=== PATIENT | male | born 2000 | race Two or more races ===

== ENCOUNTER 2020-07-15 17:42 | Emergency (ER) | payer OTHER, SELFPAY ==
[2020-07-15 17:45] VITALS: BP 133/97; PULSE 91; RESP 18; TEMP 36.2; O2SAT 98; BMI 30.6
--- NOTE | 2020-07-15 18:35 | MRI_ITS ---
STUDY: MRI BRAIN WITHOUT CONTRAST REASON FOR EXAM: Male, 19 years old. vision blurring, incontinence, eval for ms TECHNIQUE: Standardized multiplanar fat and water weighted pulse sequences were obtained. COMPARISON: None. FINDINGS: Normal size of the ventricles and extra-axial spaces for the patient''s age. Multiple bilateral periventricular white matter lesions some of which involve the callosal septal interface without mass effect or restricted diffusion which may be consistent with demyelinating disease in patient of this age. Normal bilateral basal ganglia. Normal thalami. There is no extra-axial fluid accumulation. Normal flow voids within the major intracranial circulation suggesting patency by spin echo criteria. Normal sella turcica, pituitary gland, infundibular stalk, optic chiasm and hypothalamus. Normal tectal plate and pineal gland. Normal midbrain, mary kay and medulla. Normal cerebellum. Normal basal cisterns. Normal bilateral temporal bones. Normal bilateral internal auditory canals. No demonstrated orbital abnormality, within the constraints of a routine brain study. Normal visualized paranasal sinuses. Normal calvarium and skull base. Normal visualized soft tissue structures. There appears to be a lesion within the cord posterior to the C2 vertebral body also likely demyelinating plaque. MRI/Brain without Contrast IMPRESSION: Findings which are consistent with multiple sclerosis with possible involvement of the cervical cord at C2.. . Limited repeat study with contrast would be helpful to assess possible active demyelination if clinically indicated Electronically Signed: Tye Fay MD at 20:02 EDT , Service support ,
--- NOTE | 2020-07-15 18:53 | ED.DCSUM_ITS ---
History of Present Illness Chief Complaint: Numb/Ting Informant: Patient Narrative: Patient is a 19-year-old previously healthy male who presents to the emergency department for right leg/arm heaviness, paresthesia/numbness. He states that he is also been having some blurred vision bilaterally. He has had a few episodes of incontinence. All the symptoms have been present over the past 2 weeks. He denies ever having this happen before in the past. Denies any significant headache. No neck stiffness. No fevers or chills. Denies any chest pain, shortness of breath or heart palpitations. No abdominal pain or nausea/vomiting. Denies any dysuria or hematuria. No change in bowel habits. He denies any family history of neurological disorders. He denies smoking, drinking or drug use. Past Medical History - Allergies and Home Meds Allergies/Adverse Reactions: Allergies No Known Allergies Allergy (Verified 07/15/20 17:47) Primary Care Physician: Care Physician,No Primary [Primary Care Provider] - Prior records reviewed: Yes Past Medical History: None Smoking Status: Never smoker Alcohol: None Drugs: None Review of Systems All systems negative except as indicated General: Denies: Chills, Fever, Sweats Eyes: Reports: Blurred Vision - bilaterally ENT: Denies: Rhinorrhea, Sore throat Cardiovascular: Denies: Chest pain, Palpitations Respiratory: Denies: Dyspnea, Cough, Dyspnea on exertion Gastrointestinal: Denies: Abdominal pain, Nausea, Vomiting, Diarrhea Genitourinary: Reports: - - Incontinence. Denies: Dysuria, Hematuria, Frequency Musculoskeletal: Denies: Back pain, Extremity Pain Skin: Denies: Rash, Wounds Neurological: Reports: Parasthesia, Numbness. Denies: Headache, Weakness Physical Exam Vital Signs/Narrative: Vital Signs Temp Pulse Resp BP Pulse Ox 07/15/20 17:45 97.2 F L 91 18 133/97 H 98 Inital Vital Signs reviewed: Yes General: Well nourished, Well developed, No Acute Distress Head: Normocephalic, Atraumatic Eyes: Perrl, EOMI ENT: Moist mucous membranes, No rhinorrhea Neck: Supple, Nontender Cardiovascular: Regular rate, Regular rhythm, No murmurs Respiratory: No distress, CTA bilaterally, Chest nontender Abdomen: Soft, Nontender, Nondistended, Normal bowel sounds Back: Nontender, Normal Inspection Extremities: Nontender, No edema Skin: Normal color, No rash Neurological: Alert, Oriented x3, Cranial nerves II-XII grossly intact, Normal Strength, - - 5 out of 5 muscle strength good coordination. Feels that the sensation is slightly decreased in the right side. Psychological: Normal affect, Normal Mood Diagnostic/Tx/Re-eval - Medical Decision Making Patient presents to the ED for right-sided weakness/paresthesia, vision changes and incontinence. Upon arrival to the emerge department vital signs within normal limits. I do have concern for multiple sclerosis so we will obtain MRI. Basic lab work and urinalysis being obtained. Unfortunately MRI did show lesions concerning for multiple sclerosis. I spoke with on-call neurologist at [facility] and he recommended transfer as we do not have neurology care. He did not recommend any steroid treatment as it is not emergent and they will give this at their facility. Patient otherwise has been stable throughout ED stay. He understands and is agreeable with this plan. Patient signed out due to end of shift. Currently awaiting accepting physician and transfer. Patient signed out due to end of shift. ED Disposition - Plan for ED Patient: Disposition: [facility] Diagnosis: Multiple sclerosis Referrals: Care Physician,No Primary [Primary Care Provider] -
[2020-07-15 18:57] LABS: Absolute Lymphocyte Count 1.95 X10^3/uL (0.83-4.51); Absolute Neutrophil Count 1.9 X10^3/uL (2.0-7.7); Basophil# 0.07 X10^3/uL; Basophil% 1.2 % (0-1); Eosinophil# 0.15 X10^3/uL; Eosinophils% 2.6 % (0-5); Hematocrit 44.9 % (40-54); Hemoglobin 15.3 g/dL (13.0-16.5); Lymphocyte # 1.95 X10^3/ul (4.0); Lymphocyte % 34.2 % (19-41); Mean Corp Hgb Conc 34.1 g/dL (32-36); Mean Corpuscular Hgb 28.8 pg (27.0-32.0); Mean Corpuscular Volume 84.6 fL (80-94); Mean Platelet Vol. 9.7 fl (6.2-12.0); Monocyte# 1.55 X10^3/uL; Monocyte% 27.2 % (0-10); NRBC Flagged by Analyzer 0 % (0-5); Neutrophil # 1.93 X10^3/uL (2.7-7.7); Neutrophil % 33.9 % (47-70); POSITIVE DIFFERENTIAL YES; Platelet Count 337 K/mm3 (150-450); RBC Distribution Width CV 11.8 % (11.6-14.6); RBC Distribution Width SD 35.9 fl (35.1-43.9); Red Blood Count 5.31 M/mm3 (4.6-6.2); White Blood Count 5.7 K/mm3 (4.4-11.0)
[2020-07-15 19:03] LABS: Differential Indicated SCAN CRITERIA MET
[2020-07-15 19:12] LABS: Anion Gap 6 (5-15); BUN 19 mg/dL (7-18); BUN/Creat Ratio 17.6 RATIO (10-20); Calcium,Total 9.5 mg/dL (8.5-10.1); Chloride 108 mmol/L (98-107); Creatinine, Serum 1.08 mg/dL (0.70-1.30); EST Glomerular Filtration Rate 92 mL/min (>60); Est Glom Filt Rate - Afr Amer 111 mL/min (>60); Glucose 86 mg/dL (74-106); Potassium 3.9 mmol/L (3.5-5.1); Sodium Level 142 mmol/L (136-145)
[2020-07-15 20:45] VITALS: BP 140/94; PULSE 87; RESP 16; O2SAT 98
--- NOTE | 2020-07-15 21:00 | CM.ED ---
SOCIAL WORK Informant: Dr. Rice Reason for Consult: Support/Resources Case conference with Dr. Rice. Patient newly diagnosed with MS. Patient from the [facility]. Met with patient in room. Introduced role and reason for referral. Patient states [facility]. Discussed diagnosis. Patient reports will be following up with the [facility]. Emotional support, education and active listening provided. Tracey Marcos, CINDER DUMP CRANE OPERATOR, [id number] ANALYST
--- NOTE | 2020-07-15 22:26 | ED.RN ---
[facility] UPDATED ON PATIENT CONDITION
[2020-07-15 23:48] VITALS: BP 136/79; PULSE 74; RESP 16; TEMP 36.4; O2SAT 96
[2020-07-15 23:57] VITALS: BP 136/79; PULSE 74; RESP 16; TEMP 36.4; O2SAT 96
== END 2020-07-16 00:58 | disposition short-term general hospital (02) ==
PROVIDERS: Emergency Provider Emergency Medicine
DX: G35 Multiple sclerosis (principal)
CPT/HCPCS: 70551; 80048; 85025; 99283

== ENCOUNTER 2020-08-24 14:04 | Outpatient (RCR) | payer SELFPAY | END 2020-09-04 23:59 | LOC: NS 14:04 | PROVIDERS: Visit Provider Family Medicine | DX: Z71.3 Dietary counseling and surveillance (principal); E66.9 Obesity, unspecified | CPT/HCPCS: 97802 ==

== ENCOUNTER 2020-09-07 13:53 | Outpatient (RCR) | payer SELFPAY | END 2020-10-04 23:59 | LOC: NS 13:53 | PROVIDERS: Visit Provider Family Medicine | DX: Z71.3 Dietary counseling and surveillance (principal); E66.9 Obesity, unspecified | CPT/HCPCS: 97803 ==

== ENCOUNTER 2020-12-28 15:30 | Outpatient (RCR) | payer SELFPAY | END 2021-01-02 23:59 | LOC: NS 15:30 | PROVIDERS: Visit Provider Family Medicine | DX: Z71.3 Dietary counseling and surveillance (principal); E66.9 Obesity, unspecified | CPT/HCPCS: 97803 ==

== ENCOUNTER 2021-01-17 14:25 | Outpatient (RCR) | payer SELFPAY | END 2021-02-02 23:59 | LOC: NS 14:25 | PROVIDERS: Visit Provider Family Medicine | DX: Z71.3 Dietary counseling and surveillance (principal); E66.9 Obesity, unspecified | CPT/HCPCS: 97803 ==

== ENCOUNTER 2021-02-08 14:24 | Outpatient (RCR) | payer SELFPAY | END 2021-02-18 23:59 | disposition home or self-care (01) | LOC: NS 14:24 | PROVIDERS: Visit Provider Family Medicine | DX: Z71.3 Dietary counseling and surveillance (principal); E66.9 Obesity, unspecified | CPT/HCPCS: 97803 ==

== ENCOUNTER 2021-02-08 14:58 | Emergency (ER) | payer OTHER, SELFPAY ==
[2021-02-08 14:59] VITALS: BP 131/93; PULSE 68; RESP 14; TEMP 36.7; O2SAT 99; BMI 30.4
--- NOTE | 2021-02-08 15:22 | ED.VIS.GEN ---
History of Present Illness Chief Complaint: Eye Problem Informant: Patient Onset: Month(s) - 3 Narrative: Patient presents for evaluation for a large bump on his left eyelid. He reports he noted symptoms in November where he could not close his eyes. He goes to school here and is from [place]. He states he was on antibiotic topically however symptoms are not improving. He saw his PCP back in [place] and was told to see a physician [place] the [place]. He states he called ophthalmology office around the area stating his appointment is not for 2 weeks. He states over the past 3 weeks it has enlarged and has been draining. Mild blurry vision. He wears glasses. He states due to appointment not for another 2 weeks is concerned therefore came here. States been using warm compresses throughout with no improvement. Ortiz here healthy 20-year-old came in with incised chalazion. Started in November is from [place] goes to school years and is like with the PCP over [place] several see In 30-minute appointment think it with your group decision-making: I doctors appointments now for 2 weeks now since I got bigger in the last 2 to 3 weeks is probably good marble size of this does not keep him from closing his eyes and I see some exudative drainage to actually under his eyelid a little bit there so there is some he says kind of been draining recently but he said well 2 weeks of appointment and I was concerned so he came here. Prior similar symptoms: No Past Medical History - Allergies and Home Meds Allergies/Adverse Reactions: Allergies No Known Allergies Allergy (Verified 07/15/20 17:47) Primary Care Physician: Care Physician,No Primary [NON-STAFF] - Past Medical History: None Smoking Status: Never smoker Review of Systems General: Denies: Chills, Fever, Sweats Eyes: Reports: Blurred vision - left, - - Left eyelid swelling.. Denies: Visual changes - bilaterally, Diplopia ENT: Denies: Rhinorrhea, Sore throat Cardiovascular: Denies: Chest pain, Palpitations Respiratory: Denies: Dyspnea, Cough, Dyspnea on exertion Gastrointestinal: Denies: Abdominal pain, Nausea, Vomiting, Diarrhea, Melena, Hematochezia Genitourinary: Denies: Dysuria, Hematuria, Frequency Musculoskeletal: Denies: Back pain, Extremity Pain Skin: Denies: Rash, Wounds Neurological: Denies: Headache, Weakness, Numbness Physical Exam Vital Signs/Narrative: Vital Signs Temp Pulse Resp BP Pulse Ox 02/08/21 14:59 98.0 F 68 14 131/93 H 99 General: Well nourished, Well developed, No Acute Distress Head: Normocephalic, Atraumatic Eyes: Perrl, EOMI, - - [place] size movable nodule mid upper eyelid, looking under there is pinpoint region where there is exudative drainage. There is mild erythema of the sclera. Visual acuity with glasses 20/40 OD, 20/50 OS, 20/40 OU ENT: Moist mucous membranes, No rhinorrhea Neck: Supple, Nontender Cardiovascular: Regular rate, Regular rhythm, No murmurs Respiratory: No distress, CTA bilaterally, Chest nontender Abdomen: Soft, Nontender, Nondistended, Normal bowel sounds Back: Nontender, Normal Inspection Extremities: Nontender, No edema Skin: Normal color, No rash Neurological: Alert, Oriented x3, Cranial nerves II-XII grossly intact, Normal Strength, Normal Sensation Psychological: Normal affect, Normal Mood Diagnostic/Tx/Re-eval - Medical Decision Making Clinically patient has a chalazion causing him difficulty closing his eyes there is some drainage. Visual acuity was intact with no significant findings. Due to his difficulty getting to an eye doctor for 2 weeks I spoke with on-call supervisor telephone answering service Dr. Villalobos discussed will place him on oral antibiotics of doxycycline twice a day to be seen as an outpatient. ED Disposition - Plan for ED Patient: Disposition: Home or Assisted Living Diagnosis: Chalazion left upper eyelid Instructions: ED Chalazion Prescriptions: Doxycycline 100 mg PO BID #20 capsule Referrals: Care Physician,No Primary [NON-STAFF] - Tye Villalobos MD [STAFF PHYSICIAN] - 1 Day
[2021-02-08] MEDS: Doxycycline 100 MG CAPSULE PO (15:46)
[2021-02-08 16:19] VITALS: RESP 16
== END 2021-02-08 16:20 | disposition home or self-care (01) ==
PROVIDERS: Emergency Provider Emergency Medicine; PCP Pediatrics
DX: H00.14 Chalazion left upper eyelid (principal)
CPT/HCPCS: 99283

== ENCOUNTER 2021-02-17 08:02 | Outpatient (RCR) | payer OTHER, SELFPAY | END 2021-04-12 23:59 | LOC: IMMUN 08:02 | PROVIDERS: PCP Pediatrics; Referring Provider Family Medicine; Visit Provider Family Medicine | DX: Z23 Encounter for immunization (principal) | CPT/HCPCS: 0002A; 91300 ==

== ENCOUNTER 2021-03-12 15:14 | Emergency (ER) | payer OTHER, SELFPAY ==
[2021-03-12 15:16] VITALS: BP 117/52; PULSE 79; RESP 14; TEMP 36.6; O2SAT 99; BMI 31.6
--- NOTE | 2021-03-12 15:31 | EKG12_ITS ---
Test Reason : Blood Pressure : / mmHG Vent. Rate : 081 BPM Atrial Rate : 081 BPM P-R Int : 162 ms QRS Dur : 100 ms QT Int : 340 ms P-R-T Axes : 055 012 050 degrees QTc Int : 394 ms Normal sinus rhythm Normal ECG Confirmed by JANAK LOWE, GLADIS ([id number]), supervising editor news reel FIDEL JIMÉNEZ ([id number]) on 03/14/2021 1:15:53 PM Referred By: JAYLA Confirmed By:GLADIS BRICENO MD
--- NOTE | 2021-03-12 15:32 | EDS_ITS ---
HPI History of Present Illness Chief Complaint: Shortness of Breath Informant: patient Onset/Context/Timing Onset: Days Context: Gradual Onset Current Severity: Moderate Maximum Severity: Moderate Narrative Narrative: Patient presents secondary to shortness of breath and chest pain. Patient got his second dose of Pfizer Covid vaccine on March 10. That evening he developed fevers and body aches. Today he developed shortness of breath that has been worsening throughout the day. He does describe intermittent sharp central chest pain. [facility] Medical History (Updated 03/12/21 @ 18:[address] Christine Brenner MD) Depression Allergy/AdvReac Type Severity Reaction Status Date / Time No Known Allergies Allergy Verified 07/15/20 17:47 Social History Smoking Status: Never smoker ROS ROS ED Constitutional Constitutional ED: Reports fever(s); Denies chills Eyes Eyes: Denies change in vision ENT ENT ED: Denies sore throat Cardiovascular Cardiovascular: Reports chest pain; Denies racing heartbeat Respiratory/Chest Respiratory/Chest: Reports dyspnea; Denies cough Gastrointestinal Gastrointestinal: Denies abdominal pain, diarrhea, nausea or vomiting Genitourinary Genitourinary ED: Denies dysuria Musculoskeletal Musculoskeletal: Reports myalgias; Denies back pain Integumentary Denies rash Neurologic Neurologic: Denies headache(s) or weakness Psychiatric Psychiatric: Denies anxiety or depression Endocrine Endocrinology: Denies polydipsia or polyuria Allergic/Immunologic Allergic/Immunologic ED: Denies urticaria EXAM Physical Exam Const Vital Signs: 03/12/21 15:16 03/12/21 15:44 03/12/21 17:00 Temperature 97.8 F Temperature Source Temporal Pulse Rate 79 86 Respiratory Rate 14 29 H Respiratory Effort Short of Breath Respiratory Depth Shallow Respiratory Pattern Tachypnea Blood Pressure 117/52 L 128/70 H Blood Pressure Mean 73 89 Pulse Ox 99 96 Oxygen Delivery Method Room Air Room Air Positive well nourished and well developed General Appearance ED: well developed HEENT Reports normocephalic and head/scalp atraumatic Eyes PERRL and EOMs intact bilaterally Neck supple Chest Wall inspection of chest normal and palpation of chest normal Resp normal respiratory effort and clear to auscultation bilaterally Cardio regular rate and regular rhythm GI normal to inspection, nondistended, normoactive bowel sounds Palpation: soft Back/Spine no CVA tenderness Extremity normal to inspection Neuro oriented x3 and no sensory deficits noted Sensorium / Orientation: alert Motor Exam: strength 5/5 throughout Psych mental status grossly normal Skin no rashes or lesions noted MDM MDM MDM Narrative Medical decision making narrative: Patient placed on alarm security or surveillance monitor with pulse ox. No significant arrhythmias noted. No episodes of hypoxia. Lab Data Attestation: I reviewed the patient's lab results. Labs: Laboratory Results - last 24 hr 03/12/21 03/12/21 03/12/21 15:40 15:40 15:46 WBC 6.7 RBC 4.95 Hgb 13.9 Hct 42.1 MCV 85.1 MCH 28.1 MCHC 33.0 RDW Std Deviation 37.7 RDW Coeff of Wendy 12.2 Plt Count 225 MPV 9.8 Immature Gran % (Auto) 3.000 H Neut % (Auto) 37.4 L Lymph % (Auto) 13.5 L [place] % (Auto) 43.3 H Eos % (Auto) 1.9 Baso % (Auto) 0.9 Absolute Neuts (auto) 2.5 Absolute Lymphs (auto) 0.91 Nucleated RBC % 0 Differential Comment SCANNED D-Dimer Quant (PE/DVT) 1.01 H* Sodium 136 Potassium 3.8 Chloride 104 Carbon Dioxide 28.0 Anion Gap 4 L BUN 19 H Creatinine 0.83 Estim Creat Clear Calc 140.78 Est GFR (MDRD) Af Amer 151 Est GFR (MDRD) Non-Af 124 BUN/Creatinine Ratio 22.9 H Glucose 138 H Calcium 8.9 Troponin I < 0.015 Radiography Chest X-Ray - ED: 1 View, Read by ED Physician, Normal, Heart, Lungs and Mediastinum Diagnostic Testing: Radiology Impression Chest X-Ray 03/12/21 15:49 IMPRESSION: Slight increase in perihilar interstitial markings may be in part due to low lung volumes, however cannot rule out infection and/or edema. Electronically Signed: Jesús Saucedo MD at 16:23 EDT Tel , Service support , Chest CTA 03/12/21 17:09 IMPRESSION: 1. No pulmonary embolism 2. No acute findings. Electronically Signed: Edilson Aguilar MD at 17:59 EDT Tel , Service support , EKG Initial EKG: Attestation: I personally reviewed and interpreted this EKG as follows: Interpretation: Sinus Rhythm (Sinus 81 with no acute ischemia.) Treatment and Re-Evaluation Comments:: On repeat evaluation patient resting comfortably. Test results reviewed with him. At this time I do not have a definitive cause for his dyspnea, but was able to reassure him that he has no evidence of infiltrate, pneumothorax, blood clot, etc. Patient will continue to monitor his symptoms. I did encourage him to return for worsening symptoms or concerns. Discharge Plan Triage Chief Complaint: Shortness of Breath ED Provider: Christine Brenner Dx/Rx/DC Orders Clinical Impression: Acute dyspnea Instructions: ED Dyspnea Primary Care Provider: Mark Barillas Referrals: Mark Barillas MD [Primary Care Provider] - [facility] [GROUP OF PHYSICIANS] - 3-5 Days if not improving Disposition Disposition: Home, self care
--- NOTE | 2021-03-12 15:46 | NURSING ---
NO OLD EKG
--- NOTE | 2021-03-12 15:49 | RAD_ITS ---
INDICATION: sob EXAMINATION/TECHNIQUE: X-RAY - XR Chest 1 View COMPARISON: None. FINDINGS: Low lung volumes. Slight increase in perihilar interstitial markings. The cardiomediastinal silhouette is unremarkable. No pleural effusion or pneumothorax. No acute osseous abnormalities. RAD/Chest 1 View (Portable) IMPRESSION: Slight increase in perihilar interstitial markings may be in part due to low lung volumes, however cannot rule out infection and/or edema. Electronically Signed: Jesús Saucedo MD at 16:23 EDT Tel , Service support ,
[2021-03-12 15:57] LABS: Absolute Lymphocyte Count 0.91 X10^3/uL (0.83-4.51); Absolute Neutrophil Count 2.5 X10^3/uL (2.0-7.7); Basophil# 0.06 X10^3/uL; Basophil% 0.9 % (0-1); Eosinophil# 0.13 X10^3/uL; Eosinophils% 1.9 % (0-5); Hematocrit 42.1 % (40-54); Hemoglobin 13.9 g/dL (13.0-16.5); Lymphocyte # 0.91 X10^3/ul (0.83-4.51); Lymphocyte % 13.5 % (19-41); Mean Corpuscular Hgb 28.1 pg (27.0-32.0); Mean Corpuscular Volume 85.1 fL (80-94); Mean Platelet Vol. 9.8 fl (6.2-12.0); Monocyte# 2.91 X10^3/uL; Monocyte% 43.3 % (0-10); NRBC Flagged by Analyzer 0 % (0-5); Neutrophil # 2.51 X10^3/uL (2.7-7.7); Neutrophil % 37.4 % (47-70); POSITIVE DIFFERENTIAL YES; Platelet Count 225 K/mm3 (150-450); RBC Distribution Width CV 12.2 % (11.6-14.6); RBC Distribution Width SD 37.7 fl (35.1-43.9); Red Blood Count 4.95 M/mm3 (4.6-6.2); White Blood Count 6.7 K/mm3 (4.4-11.0)
[2021-03-12 16:17] LABS: Anion Gap 4 (5-15); BUN 19 mg/dL (7-18); BUN/Creat Ratio 22.9 RATIO (10-20); Calcium,Total 8.9 mg/dL (8.5-10.1); Chloride 104 mmol/L (98-107); Creatinine, Serum 0.83 mg/dL (0.70-1.30); EST Glomerular Filtration Rate 124 mL/min (>60); Est Glom Filt Rate - Afr Amer 151 mL/min (>60); Estimated Creatinine Clearance 140.78 ml/min; Glucose 138 mg/dL (74-106); Potassium 3.8 mmol/L (3.5-5.1); Sodium Level 136 mmol/L (136-145)
[2021-03-12 16:19] LABS: Differential Indicated SCAN CRITERIA MET
[2021-03-12 16:33] LABS: Differential Comment SCANNED
[2021-03-12 17:00] VITALS: BP 128/70; PULSE 86; RESP 29; O2SAT 96
[2021-03-12 17:08] LABS: D-Dimer Quantitative (DVT/PE) 1.01 FEU/ug/m (0.27-0.49)
--- NOTE | 2021-03-12 17:09 | CT_ITS ---
STUDY: CTA CHEST REASON FOR EXAM: Male, 20 years old. Hi lifting testicular degenerative RADIATION DOSAGE (If Supplied By Facility): CTDIvol = ( 10.73 ) mGy, DLP = ( 378.03 ) mGycm TECHNIQUE: The examination was performed with the intravenous administration of IV 100mL Isovue-370. Post-processing of the angiographic images was performed, with multiplanar reformation and 3D reconstruction. Individualized dose optimization techniques were used for this CT. COMPARISON: None. FINDINGS: There is no acute or chronic pulmonary embolism. Aorta is of normal caliber. Lungs are clear with low inspiratory volumes. There is no pneumothorax, pulmonary edema or pleural effusions. Mediastinal contents are normal. Osseous structures are intact. Abdominal structures are unremarkable. CT/CTA Chest W/WO Contrast IMPRESSION: 1. No pulmonary embolism 2. No acute findings. Electronically Signed: Edilson Aguilar MD at 17:59 EDT Tel , Service support ,
[2021-03-12 18:30] VITALS: BP 118/71; PULSE 77; RESP 30; O2SAT 96
[2021-03-12 18:46] VITALS: PULSE 80; RESP 28; O2SAT 97
== END 2021-03-12 18:50 | disposition home or self-care (01) ==
PROVIDERS: Emergency Provider Emergency Medicine; PCP Pediatrics
DX: R06.00 Dyspnea, unspecified (principal)
CPT/HCPCS: 71045; 71275; 80048; 84484; 85025; 85379; 87426; 93005; 99284; Q9967; A4216